=== PATIENT | male | born 1985 | race Caucasian/White ===

== ENCOUNTER 2018-01-27 18:35 | Emergency (ER) | payer OTHER ==
[~2018-01-27] VITALS: Ht 175.3 cm; Wt 92.1 kg
[2018-01-27 19:09] LABS: ABSOLUTE EOSINOPHILS 0.3 thou/uL (0.0-0.7); ABSOLUTE MONOCYTES 1.2 thou/uL (0.0-1.2); ABSOLUTE NEUTROPHILS 8.1 thou/uL (1.6-8.1); BASOPHILS 0.1 %; EOSINOPHILS 2.6 %; HEMATOCRIT 50.1 % (42.0-52.0); HEMOGLOBIN 16.7 gm/dL (14.0-18.0); MCH 30.2 pg (26.0-34.0); MCHC 33.3 g/dL (28.0-37.0); MCV 90.8 fL (80.0-100.0); MONOCYTES 10.1 %; MPV 7.7 fl. (7.2-11.1); NUCLEATED RBCS 0 /100WBC; PLATELET COUNT* 366 thou/uL (150-400); POLYS 70.2 %; RBC 5.52 mil/uL (4.50-6.00); RDW-CV 13.1 % (10.5-14.5); WBC 11.5 thou/uL (4.0-11.0)
[2018-01-27 19:16] LABS: ANION GAP 7 mmol/L (7-16); BUN 9 mg/dL (7-18); CALCIUM 8.4 mg/dL (8.5-10.1); CHLORIDE 102 mmol/L (98-107); CO2 29 mmol/L (21-32); GLUCOSE 89 mg/dL (70-99); POTASSIUM 3.7 mmol/L (3.5-5.1); SODIUM 138 mmol/L (136-145)
[2018-01-27 19:23] LABS: ALBUMIN 4.6 g/dL (3.4-5.0); ALKALINE PHOSPHATASE 104 U/L (46-116); LIPASE 73 U/L (73-393); SGOT 37 U/L (15-37); SGPT 75 U/L (30-65); TOTAL BILIRUBIN 0.5 mg/dL (<0.1-1.0); TROPONIN-I LEVEL <0.06 ng/mL (<0.06)
[2018-01-27 19:36] LABS: URINE BILIRUBIN NEGATIVE (Negative); URINE BLOOD NEGATIVE (Negative); URINE CLARITY CLEAR; URINE COLOR YELLOW; URINE GLUCOSE-RANDOM NEGATIVE (Negative); URINE KETONES NEGATIVE (Negative); URINE LEUKOCYTES-REFLEX NEGATIVE (Negative); URINE NITRITE-REFLEX NEGATIVE (Negative); URINE PROTEIN NEGATIVE (Negative); URINE SPECIFIC GRAVITY >= 1.030 (1.005-1.030); URINE UROBILINOGEN 0.2 E.U./dl (0.2-1.0)
[2018-01-27] MEDS ORDERED: HYDROCODON-ACE1 EAC7 PO (20:53)
[2018-01-27] MEDS ORDERED: CIPROFLOXACIN500 M1 PO (20:53)
[2018-01-27] MEDS ORDERED: PHENERGAN 25 MG25 M1 PO (20:53)
[2018-01-27 21:42] VITALS: BP 108/48
--- NOTE | 2018-01-28 10:57 | EKG ---
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
== END 2018-01-27 21:43 | disposition home or self-care (01) ==
LOC: M.ERS 18:35
PROVIDERS: Family Medicine
DX: K52.9 Noninfective gastroenteritis and colitis, unspecified (principal); F17.210 Nicotine dependence, cigarettes, uncomplicated

== ENCOUNTER 2019-05-07 17:14 | Emergency (ER) | payer OTHER ==
[~2019-05-07] VITALS: Ht 177.8 cm; Wt 79.4 kg
[~2019-05-07 17:14] MED LIST: CIPROFLOXACIN500 M1 PO; HYDROCODON-ACE1 EAC7 PO; PHENERGAN 25 MG25 M1 PO
[2019-05-07] MEDS ORDERED: SUBOXONE 8 MG-1 EAC3 SUBLING (17:21)
[2019-05-07 17:38] LABS: ABSOLUTE EOSINOPHILS 0.3 thou/uL (0.0-0.7); ABSOLUTE LYMPHOCYTES 1.4 thou/uL (0.8-5.3); ABSOLUTE MONOCYTES 0.6 thou/uL (0.0-1.2); ABSOLUTE NEUTROPHILS 1.8 thou/uL (1.6-8.1); BASOPHILS 0.5 %; EOSINOPHILS 8.3 %; HEMATOCRIT 45.5 % (42.0-52.0); HEMOGLOBIN 15.5 gm/dL (14.0-18.0); LYMPHOCYTES 33.2 %; MCH 29.9 pg (26.0-34.0); MCHC 34.1 g/dL (28.0-37.0); MCV 87.8 fL (80.0-100.0); MONOCYTES 14.3 %; MPV 7.3 fl. (7.2-11.1); NUCLEATED RBCS 0 /100WBC; PLATELET COUNT* 354 thou/uL (150-400); POLYS 43.7 %; RBC 5.19 mil/uL (4.50-6.00); RDW-CV 14.2 % (10.5-14.5); WBC 4.2 thou/uL (4.0-11.0)
[2019-05-07 17:47] LABS: CALCIUM 9.5 mg/dL (8.5-10.1); POTASSIUM 4.1 mmol/L (3.5-5.1)
[2019-05-07 17:58] LABS: ALBUMIN 3.8 g/dL (3.4-5.0); TOTAL BILIRUBIN 0.6 mg/dL (<0.1-1.0); TOTAL PROTEIN 7.8 g/dL (6.4-8.2)
[2019-05-07 20:14] VITALS: BP 115/80
--- NOTE | 2019-05-09 11:30 | EKG ---
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 05/09/19 1129 1725 1725 Milton Hollis MD, FACC /EPI
== END 2019-05-07 20:15 ==
LOC: M.ERS 17:14
PROVIDERS: Emergency Medicine Emergency Medical Services
DX: R07.89 Other chest pain (principal); Z90.49 Acquired absence of other specified parts of digestive tract

== ENCOUNTER 2019-05-08 13:36 | Emergency (ER) | payer OTHER ==
[~2019-05-08] VITALS: Ht 177.8 cm; Wt 79.4 kg
[~2019-05-08 13:36] MED LIST changes: +SUBOXONE 8 MG-1 EAC3 SUBLING
[2019-05-08 13:40] VITALS: BP 134/89
== END 2019-05-08 13:59 | disposition home or self-care (01) ==
LOC: M.ERS 13:36
DX: F41.9 Anxiety disorder, unspecified (principal); Z90.49 Acquired absence of other specified parts of digestive tract

== ENCOUNTER 2019-10-10 01:17 | Emergency (ER) | payer OTHER ==
[~2019-10-10] VITALS: Ht 177.8 cm; Wt 81.7 kg
[2019-10-10 02:29] VITALS: BP 131/72
== END 2019-10-10 02:38 | disposition home or self-care (01) ==
LOC: M.ERS 01:17
DX: M79.641 Pain in right hand (principal); R05 Cough; Z90.49 Acquired absence of other specified parts of digestive tract